=== PATIENT | female | born 1955 | race American Indian/Alaskan Native ===

== ENCOUNTER 2020-10-17 22:54 | Emergency (ER) | payer MEDICARE ==
[2020-10-17] MEDS ORDERED: ASPIRIN 325 MG TAB PO ONE (23:41)
[2020-10-18 00:40] LABS: Basophils % (Auto) 0.4 % (0.0-1.8); Eosinophils % (Auto) 0.4 % (0.0-4.3); Hematocrit 37.3 % (30.3-42.9); Hemoglobin 12.5 gm/dl (10.1-14.3); Lymphocytes # (Auto) 1.4 K/mm3 (1.2-5.4); Mean Corpuscular HGB Conc 34 % (30-34); Mean Corpuscular Volume 97 fl (79-97); Monocytes # (Auto) 0.4 K/mm3 (0.0-0.8); Platelet Count 182 K/mm3 (140-440); Red Blood Count 3.84 M/mm3 (3.65-5.03)
--- NOTE | 2020-10-18 00:59 | XRay Report ---
CHEST 2 VIEWS INDICATION / CLINICAL INFORMATION: Chest pain. COMPARISON: None available. FINDINGS: SUPPORT DEVICES: None. HEART / MEDIASTINUM: The cardiac silhouette is moderately enlarged. LUNGS / PLEURA: No significant pulmonary abnormality. No significant pleural effusion. No pneumothora x. ADDITIONAL FINDINGS: No significant additional findings. IMPRESSION: 1. No acute abnormality of the chest. Signer Name: Douglas Jon MD Signed: 10/18/2020 12:55 AM Workstation Name: [id number]
[2020-10-18 01:02] LABS: Alanine Aminotransferase 14 units/L (7-56); Albumin 4.4 g/dL (3.9-5); BUN/Creatinine Ratio 19; Blood Urea Nitrogen 29 mg/dL (7-17); Calcium 9.5 mg/dL (8.4-10.2); Hemolysis Index 5
--- NOTE | 2020-10-18 06:54 | Emergency Department Report ---
ED Chest Pain HPI - General Chief Complaint: Chest Pain Stated Complaint: CHEST PAIN/DIZZINESS PUI?: No Time Seen by Provider: 10/18/20 06:39 Source: patient, family, RN notes reviewed Mode of arrival: Stretcher Limitations: No Limitations, Physical Limitation, Other (Patient has a history of dementia. Patient is a poor historian.) - History of Present Illness Initial Comments: Primary CARE doctor: [facility] Patient is a 65-year-old female. She is not known to myself previously. Her past medical history includes dementia and hypertension. She is accompanied by her , Mr. Benedicto Medina; [phone] The patient is brought to the hospital by her and herself with a complaint of chest pain and dizziness. The patient is demented and a poor historian, most of the history is obtained from her . Patient and state that patient had chest pain yesterday at about 7:00 PM. She points to the front of her chest. The patient and her are not sure if the pain radiates to the back, arms or neck. She indicates she is not having chest pain at this time. Patient and denied vomiting and diaphoresis, and exertional shortness of breath. The patient and her deny travel, surgery, immobilization. The patient's legs appear to be at baseline, as per her . There is also a complaint of dizziness. The patient has difficulty describing the qualitative nature of her dizziness. She typically walks with minimal assistance. At the moment, she denies headache, neck pain, loss of vision, unsteady gait, focal extremity weakness/numbness. She did have some nausea. She denies urinary symptoms. Last cardiac stress test was 5 years ago. The patient states she basically feels like she is back to her baseline. Her corroborates this. MD Complaint: chest pain, other -: hour(s) Pain Location: other Pain Radiation: other Quality: other (Patient does not describe the qualitative nature of symptom.) Consistency: now resolved Improves With: nothing Worsens With: nothing Aspirin use within the Past 7 Days: (0) No - Related Data Allergies Allergy/AdvReac Type Severity Reaction Status Date / Time No Known Allergies Allergy Unverified 10/17/20 23:40 Heart Score - HEART Score History: Slightly suspicious EKG: Non-specific Age: > 65 Risk factors: 1-2 risk factors Troponin: < normal limit HEART Score: 4 - EKG Read Time Time EKG Completed: 23:35 EKG Read Time: 23:35 - Critical Actions Critical Actions: 4-6 pts:12-16.6% risk of adverse cardiac event. Should be admitted ED Review of Systems ROS: Stated complaint: CHEST PAIN/DIZZINESS Other details as noted in HPI Constitutional: malaise, weakness. denies: fever Eyes: denies: eye discharge, vision change ENT: denies: epistaxis Respiratory: denies: cough Cardiovascular: chest pain Gastrointestinal: nausea. denies: abdominal pain Genitourinary: denies: dysuria Neurological: weakness Hematological/Lymphatic: denies: easy bleeding ED Past Medical Hx - Past Medical History Previous Medical History?: Yes Hx Hypertension: Yes Hx Dementia: Yes - Surgical History Past Surgical History?: No - Social History Smoking Status: Never Smoker Substance Use Type: None ED Physical Exam - General Limitations: Other (Dementia and poor historian) General appearance: alert, anxious - Head Head exam: Present: atraumatic, normocephalic - Eye Eye exam: Present: normal appearance, PERRL, EOMI, other (Visual acuity intact to finger counting in color perception at a close distance). Absent: nystagmus - ENT ENT exam: Present: normal exam, normal orophraynx, mucous membranes moist, normal external ear exam - Neck Neck exam: Present: normal inspection, full ROM. Absent: tenderness, meningismus - Respiratory Respiratory exam: Present: normal lung sounds bilaterally. Absent: respiratory distress, wheezes, rales, rhonchi, stridor, decreased breath sounds - Cardiovascular Cardiovascular Exam: Present: regular rate, normal rhythm, normal heart sounds. Absent: bradycardia, tachycardia, irregular rhythm, systolic murmur, diastolic murmur, rubs, gallop - GI/Abdominal GI/Abdominal exam: Present: soft. Absent: distended, tenderness, guarding, rebound, rigid, pulsatile mass - Extremities Exam Extremities exam: Present: normal inspection, full ROM, pedal edema (2+ edema in the bilateral lower extremities.), other (2+ pulses noted in the bilateral upper and lower extremities. There is no palpable cord. negative Homans sign. Muscular compartments are soft. The pelvis is stable.). Absent: calf tenderness - Back Exam Back exam: Present: normal inspection, full ROM. Absent: tenderness, CVA tenderness (R), CVA tenderness (L), paraspinal tenderness, vertebral tenderness - Neurological Exam Neurological exam: Present: alert (Negative Romberg examination. Patient unable to perform tandem gait), normal gait, other (No facial droop. Tongue midline. Extraocular movements intact bilaterally. Facial sensation intact to light touch in V1, V2, V3 distribution bilaterally. 5 and a 5 strength in 4 extremities. Sensation intact to light touch in 4 extremities.). Absent: motor sensory deficit - Psychiatric Psychiatric exam: Present: anxious - Skin Skin exam: Present: warm, dry, intact, normal color. Absent: rash ED Course Vital Signs 10/17/20 23:28 Temperature 98.4 F Pulse Rate 62 Respiratory 18 Rate Blood Pressure 131/67 O2 Sat by Pulse 99 Oximetry - Reevaluation(s) Reevaluation #1: 10/18/20 07:33 Differential diagnosis, including but not limited to: Orthostasis, vagal event, structural cardiac disease, acute coronary syndrome, pulmonary embolism, TIA, complex migraine, vertebrobasilar syndrome Assessment and plan: 65-year-old female with a complaint of chest pain, nausea and dizziness, history limited as the patient is demented. She is accompanied by her . Her objective physical examination is unremarkable with the exception of lower extremity swelling, which her feels is chronic. She does walk with a steady gait, and her neurologic examination is nonfocal. She is not currently tachycardic, tachypneic or hypoxic, patient's denies DVT and pulmonary embolism risk factors, she has no pulsatile abdominal mass, equal pulses in the upper and lower extremities, and unremarkable x-ray of the chest. Moderate risk for major adverse cardiac event as per heart score. Given nonspecific symptoms, obtain CT scan of the brain, CT angiogram head and neck. Not a TPA candidate as symptoms present for greater than 4.5 hours, and her examination is very unlikely to be consistent with a large vessel occlusion. Her further corroborates that she appears to be at her neurologic baseline. Check D-dimer, and if elevated, obtain nuclear medicine study of the lungs, and bilateral lower extremity DVT study. Admit patient to medical service once initial diagnostics have resulted. Treat symptoms as they arise, serial EKGs, serial troponins. Urinalysis pending, have discussed this plan of care with the patient and her hu sband, who are agreeable. This patient is a [facility] patient. Have requested call back from their hub to arrange and coordinate admission. 10/18/20 08:40 Contacted [facility] at 7:20 AM. No answer. Repaging at 8:40 AM. 10/18/20 09:46 Patient accepted to [facility] facility, accepting physician is Dr. Real Gabriel. Home medications include Namenda, 10 mg twice daily, atenolol, 50 mg daily, and chlorthalidone 50 mg daily. 10/18/20 10:02 CT angiogram head and neck negative for acute findings. Family updated on plan of care. Not able to obtain cardiac stress test or MRI at this hospital until Tuesday. Patient will transfer to [facility] for continuity of care. MARIUSZ score - Mariusz Score Age > 65: (1) Yes Aspirin use within the Past 7 Days: (0) No 3 or more CAD Risk Factors: (0) No 2 or more Angina events in past 24 hrs: (0) No Known CAD with more than 50% Stenosis: (0) No Elevated Cardiac Markers: (0) No ST Deviation Greater than 0.5mm: (0) No MARIUSZ Score: 1 ED Medical Decision Making - Lab Data Result diagrams: 10/18/20 00:07 10/18/20 00:07 Vital Signs 10/17/20 23:28 Temperature 98.4 F Pulse Rate 62 Respiratory 18 Rate Blood Pressure 131/67 O2 Sat by Pulse 99 Oximetry Lab Results 10/18/20 10/18/20 10/18/20 Range/Units 00:07 00:07 03:23 WBC 7.5 (4.5-11.0) K/mm3 RBC 3.84 (3.65-5.03) M/mm3 Hgb 12.5 (10.1-14.3) gm/dl Hct 37.3 (30.3-42.9) % MCV 97 (79-97) fl MCH 33 H (28-32) pg MCHC 34 (30-34) % RDW 14.0 (13.2-15.2) % Plt Count 182 (140-440) K/mm3 Lymph % (Auto) 19.0 (13.4-35.0) % [place] % (Auto) 5.0 (0.0-7.3) % Eos % (Auto) 0.4 (0.0-4.3) % Baso % (Auto) 0.4 (0.0-1.8) % Lymph # (Auto) 1.4 (1.2-5.4) K/mm3 [place] # (Auto) 0.4 (0.0-0.8) K/mm3 Eos # (Auto) 0.0 (0.0-0.4) K/mm3 Baso # (Auto) 0.0 (0.0-0.1) K/mm3 Seg Neutrophils % 75.2 H (40.0-70.0) % Seg Neutrophils # 5.7 (1.8-7.7) K/mm3 Sodium 145 (137-145) mmol/L Potassium 3.4 L (3.6-5.0) mmol/L Chloride 103.9 (98-107) mmol/L Carbon Dioxide 28 (22-30) mmol/L Anion Gap 17 mmol/L BUN 29 H (7-17) mg/dL Creatinine 1.5 H (0.6-1.2) mg/dL Estimated GFR 42 ml/min BUN/Creatinine Ratio 19 % Glucose 103 H (65-100) mg/dL Calcium 9.5 (8.4-10.2) mg/dL Total Bilirubin 0.20 (0.1-1.2) mg/dL AST 16 (5-40) units/L ALT 14 (7-56) units/L Alkaline Phosphatase 71 (35-129) units/L Troponin T < 0.010 < 0.010 (0.00-0.029) ng/mL Total Protein 7.3 (6.3-8.2) g/dL Albumin 4.4 (3.9-5) g/dL Albumin/Globulin Ratio 1.5 % 10/18/20 Range/Units 05:42 WBC (4.5-11.0) K/mm3 RBC (3.65-5.03) M/mm3 Hgb (10.1-14.3) gm/dl Hct (30.3-42.9) % MCV (79-97) fl MCH (28-32) pg MCHC (30-34) % RDW (13.2-15.2) % Plt Count (140-440) K/mm3 Lymph % (Auto) (13.4-35.0) % [place] % (Auto) (0.0-7.3) % Eos % (Auto) (0.0-4.3) % Baso % (Auto) (0.0-1.8) % Lymph # (Auto) (1.2-5.4) K/mm3 [place] # (Auto) (0.0-0.8) K/mm3 Eos # (Auto) (0.0-0.4) K/mm3 Baso # (Auto) (0.0-0.1) K/mm3 Seg Neutrophils % (40.0-70.0) % Seg Neutrophils # (1.8-7.7) K/mm3 Sodium (137-145) mmol/L Potassium (3.6-5.0) mmol/L Chloride (98-107) mmol/L Carbon Dioxide (22-30) mmol/L Anion Gap mmol/L BUN (7-17) mg/dL Creatinine (0.6-1.2) mg/dL Estimated GFR ml/min BUN/Creatinine Ratio % Glucose (65-100) mg/dL Calcium (8.4-10.2) mg/dL Total Bilirubin (0.1-1.2) mg/dL AST (5-40) units/L ALT (7-56) units/L Alkaline Phosphatase (35-129) units/L Troponin T < 0.010 (0.00-0.029) ng/mL Total Protein (6.3-8.2) g/dL Albumin (3.9-5) g/dL Albumin/Globulin Ratio % - EKG Data -: EKG Interpreted by Ga EKG shows normal: sinus rhythm Rate: normal - EKG Data When compared to previous EKG there are: previous EKG unavailable 10/18/20 07:23 EKG #1 interpreted at 23: 35 This is sinus rhythm, bradycardia, motion artifact, rate 59 bpm. Normal axis, normal intervals, poor R wave progression, abnormal EKG, no STEMI, no prior for comparison. 10/18/20 08:40 EKG #2 interpreted at 07: 40 8 AM. Sinus rhythm, rate 63 bpm, left axis, multiple PVCs, left ventricular hypertrophy, motion artifact, QTC prolonged, abnormal EKG, not a STEMI. - Radiology Data Radiology results: pending, report reviewed, image reviewed CHEST 2 VIEWS INDICATION / CLINICAL INFORMATION: Chest pain. COMPARISON: None available. FINDINGS: SUPPORT DEVICES: None. HEART / MEDIASTINUM: The cardiac silhouette is moderately enlarged. LUNGS / PLEURA: No significant pulmonary abnormality. No significant pleural effusion. No pneumothorax. ADDITIONAL FINDINGS: No significant additional findings. IMPRESSION: 1. No acute abnormality of the chest. Signer Name: Douglas Jon MD Signed: 10/17/2020 11:55 PM Workstation Name: [id number] CT head/brain wo con INDICATION: headache, nausea, dizzy. TECHNIQUE: Routine CT head. All CT scans at this location are performed using CT dose reduction for ALARA by means of automated exposure control. COMPARISON: None. FINDINGS: Intracranial: Generalized atrophy. Garcia-white matter differentiation is maintained. No intracranial hemorrhage. No extra axial collection. No hydrocephalus. No herniation. Sinuses: Paranasal sinuses and mastoid air cells are essentially clear. Orbits: Globes are intact. Calvarium: No acute fracture. IMPRESSION: 1. No acute intracranial abnormality. Signer Name: Jameson Braun MD Signed: 10/18/2020 8:02 AM Workstation Name: [id number] Critical care attestation.: If time is entered above; I have spent that time in minutes in the direct care of this critically ill patient, excluding procedure time. ED Disposition Clinical Impression: Acute chest pain, Dizziness, Swelling of lower extremity, Dementia [facility] IP Is pt being admited?: No Does the pt Need Aspirin: Yes Condition: Stable Instructions: Chest Pain (ED) Referrals: ELBERT GARCÍA MD [Primary Care Provider] - 3-5 Days Time of Disposition: 09:59 (Patient will be transferred to [facility] for continuity of care.)
[2020-10-18] MEDS ORDERED: LACTATED RINGERS 500 ML IV ONE (07:12)
[2020-10-18] MEDS ORDERED: METOCLOPRAMIDE 10 MG/2 ML INJ IV ONE (07:12)
--- NOTE | 2020-10-18 09:06 | Cat Scan Report ---
CT head/brain wo con INDICATION: headache, nausea, dizzy. TECHNIQUE: Routine CT head. All CT scans at this location are performed using CT dose reduction for A JOSÉ MIGUEL by means of automated exposure control. COMPARISON: None. FINDINGS: Intracranial: Generalized atrophy. Garcia-white matter differentiation is maintained. No intracranial h emorrhage. No extra axial collection. No hydrocephalus. No herniation. Sinuses: Paranasal sinuses and mastoid air cells are essentially clear. Orbits: Globes are intact. Calvarium: No acute fracture. IMPRESSION: 1. No acute intracranial abnormality. Signer Name: Jameson Braun MD Signed: 10/18/2020 9:02 AM Workstation Name: [id number]
[2020-10-18] MEDS ORDERED: ASPIRIN 325 MG TAB PO ONE (09:47)
[2020-10-18] MEDS ORDERED: atenoloL 50 MG TAB PO SCH (10:00)
[2020-10-18] MEDS ORDERED: CHLORTHALIDONE 25 MG TAB PO SCH (10:00)
--- NOTE | 2020-10-18 10:00 | Cat Scan Report ---
. CT angio head, CT angio neck HISTORY: headache, nausea, dizzy OMNIPAQUE 350 60ML LOW GFR COMPARISON: None. TECHNIQUE: CTA of the neck and head is performed after IV contrast. 3-D/MIP reformats were postproces sed. Percentage stenosis is determined by direct quantitative measurements of diseased internal lamar tid artery diameter compared with normal distal internal carotid artery reference segments or by crit eria similar to NASCET where applicable. All CT scans at this location are performed using CT dose re duction for ALARA by means of automated exposure control. FINDINGS: CTA NECK: Aortic arch: No significant abnormality. Cervical vertebral arteries: No occlusion or hemodynamically significant stenosis. Common Carotid arteries: Mild atherosclerosis of the left carotid bulb. No occlusion or hemodynamical ly significant stenosis. Internal carotid arteries: No occlusion or hemodynamically significant stenosis. CTA HEAD: Intracranial internal carotid arteries: No occlusion or significant stenosis. Anterior cerebral arteries: No occlusion or significant stenosis. Middle cerebral arteries: No occlusion or significant stenosis. Intracranial vertebral arteries: No occlusion or significant stenosis. Basilar artery: No occlusion or significant stenosis. Posterior cerebral arteries: No occlusion or significant stenosis. No aneurysm. Additional findings: None. IMPRESSION: 1. CTA NECK: No occlusion or significant stenosis of the carotid or vertebral arteries. 2. CTA HEAD: No occlusion or significant stenosis of the major intracranial vasculature. Signer Name: Jameson Braun MD Signed: 10/18/2020 9:56 AM Workstation Name: [id number]
[2020-10-18 10:31] VITALS: BP 117/62
--- NOTE | 2020-10-19 14:24 | Electrocardiograph Report ---
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
--- NOTE | 2020-10-20 11:46 | Electrocardiograph Report ---
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
== END 2020-10-18 11:39 | disposition short-term general hospital (02) ==
LOC: ED 22:54
DX: F03.90 Unspecified dementia, unspecified severity, without behavioral disturbance, psychotic disturbance, mood disturbance, and anxiety (principal); M79.89 Other specified soft tissue disorders; R42 Dizziness and giddiness; R07.9 Chest pain, unspecified; I10 Essential (primary) hypertension
CPT/HCPCS: 36415; 70450; 70496; 70498; 71046; 80053; 82550; 83735; 84443; 84484; 85025; 85379; 93005; 96374; 99285; J2765; J7120; Q9967